=== PATIENT | female | born 1945 | race Caucasian/White ===

== ENCOUNTER 2018-08-03 11:52 | Emergency (ER) | payer MEDICARE, OTHER ==
[~2018-08-03] VITALS: Ht 170.2 cm; Wt 90.0 kg
[2018-08-03 14:00] VITALS: BP 135/73
== END 2018-08-03 15:22 | disposition home or self-care (01) ==
LOC: ER 11:53
DX: S83.8X2A Sprain of other specified parts of left knee, initial encounter (principal); X37.1XXA Tornado, initial encounter; Y93.89 Activity, other specified; Y92.89 Other specified places as the place of occurrence of the external cause; Y99.8 Other external cause status; Z88.0 Allergy status to penicillin; Z88.6 Allergy status to analgesic agent; Z88.8 Allergy status to other drugs, medicaments and biological substances
CPT/HCPCS: 73564; 99284

== ENCOUNTER 2018-11-06 09:15 | Day surgery (SDC) | payer MEDICARE, OTHER ==
[~2018-11-06] VITALS: Ht 170.2 cm; Wt 88.0 kg
[2018-11-06] VITALS (11 sets, daily range): BP systolic 101–138; BP diastolic 60–85
[2018-11-06] MEDS ORDERED: nitroGLYCERIN 0.4mg SUBLingual tab SL PRN (09:45)
[2018-11-06] MEDS ORDERED: normal saline 1000ml 1,000 ML IV SCH (09:45)
[2018-11-06] MEDS ORDERED: diphenhydrAMINE 25mg capsule PO PRN (09:45)
[2018-11-06] MEDS ORDERED: LORazepam 0.5 MG tablet PO PRN (09:45)
[2018-11-06 10:42] LABS: BASOPHILS # (AUTO) 0.1 X10'3 (0-0.2); BASOPHILS % (AUTO) 0.9 % (0-1); EOSINOPHILS # (AUTO) 0.1 X10'3 (0-0.9); EOSINOPHILS % (AUTO) 1.4 % (0-6); HEMATOCRIT 45.3 % (35.0-45.0); HEMOGLOBIN 14.9 g/dl (12.0-16.0); LYMPHOCYTES # (AUTO) 1.9 X10'3 (1.1-4.8); LYMPHOCYTES % (AUTO) 24.2 % (21-51); MEAN CORPUSCULAR HEMOGLOBIN 28.9 PG (27.0-31.0); MEAN CORPUSCULAR HGB CONC 32.8 % (33.0-36.5); MEAN CORPUSCULAR VOLUME 88.2 FL (78-98); MEAN PLATELET VOLUME 9.3 FL (7.4-10.4); MONOCYTES # (AUTO) 0.5 X10'3 (0-0.9); MONOCYTES % (AUTO) 6.8 % (2-12); NEUTROPHILS # (AUTO) 5.2 X10'3 (1.8-7.7); NEUTROPHILS % (AUTO) 66.7 % (42-75); PLATELET COUNT 273 X10'3 (140-440); RED BLOOD COUNT 5.14 X10'6 (4.20-5.60); RED CELL DISTRIBUTION WIDTH 12.8 % (11.5-14.5); WHITE BLOOD COUNT 7.8 X10'3 (4.5-11.0)
[2018-11-06 10:54] LABS: ALBUMIN 3.9 G/DL (3.4-5.0); ANION GAP 13 (8-16); BLOOD UREA NITROGEN 28 MG/DL (7-18); BUN/CREATININE RATIO 28.9 (6.6-38.0); CALCIUM 9.6 MG/DL (8.5-10.1); CHLORIDE 100 MMOL/L (99-107); CREATININE 0.97 MG/DL (0.40-0.90); GLUCOSE 101 MG/DL (70-104); POTASSIUM 3.8 MMOL/L (3.5-5.1); SODIUM 137 MMOL/L (135-145); TOTAL CARBON DIOXIDE 23.7 MMOL/L (24-32); eGFR 56 ML/MIN
[2018-11-06] MEDS ORDERED: LOSA25TA96 PO (11:19)
[2018-11-06] MEDS ORDERED: IBUP-2417 PO (11:19)
[2018-11-06] MEDS ORDERED: LEVO25TA2 PO (11:19)
[2018-11-06] MEDS ORDERED: OSC500T PO (11:19)
[2018-11-06] MEDS ORDERED: CHOL100046 PO (11:19)
[2018-11-06] MEDS ORDERED: AMLO2.5T2 PO (11:19)
[2018-11-06] MEDS ORDERED: HYDR-4069 PO (11:19)
[2018-11-06] MEDS ORDERED: iohexol 350 MG/ML 50ML vial IV ONE (11:52)
[2018-11-06] MEDS ORDERED: fentaNYL/PF 50MCG/1 ML 2ML syringe ONE (11:52)
[2018-11-06] MEDS ORDERED: iohexol 350MG/ML 100ml bottle IV ONE (11:52)
[2018-11-06] MEDS ORDERED: midazolam 2 mg/2 ml injection ONE ×2 (11:52→12:50)
[2018-11-06] MEDS ORDERED: LIDOcaine 1% (10mg/ml)w/preservative injection 20ml MDV ONE (11:52)
[2018-11-06] MEDS ORDERED: OXAZEpam 15mg capsule PO PRN (13:40)
[2018-11-06] MEDS ORDERED: ondansetron/PF 4mg/2ml inj IV PRN (13:40)
[2018-11-06] MEDS ORDERED: proCHLORperazine 10 MG/2 ml inj IV PRN (13:40)
[2018-11-06] MEDS ORDERED: HYDROcodone/acetaminophen 10/325mg tab PO PRN (13:45)
[2018-11-06] MEDS ORDERED: HYDROcodone/acetaminophen 5mg/325mg tablet PO PRN (13:45)
== END 2018-11-06 19:50 | disposition home or self-care (01) ==
LOC: SSTAY O 09:15
PROVIDERS: ATTEND Internal Medicine Cardiovascular Disease
DX: I25.10 Atherosclerotic heart disease of native coronary artery without angina pectoris (principal); M47.819 Spondylosis without myelopathy or radiculopathy, site unspecified; I10 Essential (primary) hypertension; E78.5 Hyperlipidemia, unspecified; K21.9 Gastro-esophageal reflux disease without esophagitis; I77.1 Stricture of artery; I44.4 Left anterior fascicular block; Z90.49 Acquired absence of other specified parts of digestive tract; Z87.19 Personal history of other diseases of the digestive system; Z87.2 Personal history of diseases of the skin and subcutaneous tissue; Z79.1 Long term (current) use of non-steroidal anti-inflammatories (NSAID); Z88.0 Allergy status to penicillin; Z98.890 Other specified postprocedural states; Z79.899 Other long term (current) drug therapy; Z88.8 Allergy status to other drugs, medicaments and biological substances
CPT/HCPCS: 36415; 71046; 80048; 85025; 93458; 99152; 99153; A6257; C1760; J1644; J2001; J2250; J3010; J7030; Q0163; Q9967; A4620; C1769